=== PATIENT | female | born 1990 | race Caucasian/White ===

== ENCOUNTER 2018-05-04 16:52 | Inpatient (IN) ==
[2018-05-04] MEDS ORDERED: Metoclopramide 10 MG/2 ML VIAL IVP PRN (17:07)
[2018-05-04] MEDS ORDERED: Ondansetron 4 MG/2 ML VIAL IVP PRN (17:07)
[2018-05-04] MEDS ORDERED: *HR* Nalbuphine 10 MG/ML AMPUL IVP PRN (17:07)
[2018-05-04] MEDS ORDERED: Famotidine 20 MG/2 ML VIAL IVP PRN (17:07)
[2018-05-04] MEDS ORDERED: Naloxone 0.4 MG/ML INJ IVP PRN (17:07)
[2018-05-04] MEDS ORDERED: Ringers Solution, Lactated 1,000 ML IVC SCH (17:15)
[2018-05-04 17:33] LABS: Cord Venous Blood HCO3 20 mEq/L; Cord Venous Blood PCO2 83 mmHg (27-42); Cord Venous Blood PO2 < 17 mmHg (15-45)
[2018-05-04 17:40] LABS: Cord Arterial Blood HCO3 19 mEq/L; Cord Arterial Blood Oxygen Sat 12 %
[2018-05-04] MEDS ORDERED: Oxytocin 20 units/ LR 1000 mL 20 UNIT/1,000 ML BAG IVC ONE (17:55)
--- NOTE | 2018-05-04 18:03 | OB/GYN History & Physical ---
Date of Encounter: 05/04/18 Time of Encounter: 17:00 Assessment and Plan (1) 35 weeks gestation of Current visit: Yes Status: Acute (2) Active labor Current visit: Yes Status: Acute Admit to L&D for observation of labor Expectant management Pain management plan - NCB Labs - cbc and clot to hold Anticipate Dr. Vargas is OB solution maker and is available as needed Qualifiers: Fetus number: single or unspecified fetus Qualified Code(s): O60.10X0 - labor with delivery, unspecified trimester, not applicable or unspecified (3) Intact amniotic membranes during in third trimester Current visit: Yes Status: Acute AROM for delivery History of Present Illness Chief complaint: contractions HPI: Ms. Bernardo is a 27 year old female at approximately 35 weeks with an estimated date of of 06/08/18 dated by LMP. She presents from the [facility] with contractions every 2 minutes in active labor. Vaginal exam per transferring midwives as 5-6 cm. On arrival cervix is found to be complete. has been complicated by elevated LFTs. records per [facility]. Labs: O+ GBS unknown HIV unknown Hep B unknown RPR nonreactive GC/CL unknown Varicella unknown Rubella unknown Past Med Surg Social Fam HX - Past Medical History Medical history: asthma (as a child) Psychiatric history: no psych history - Past Surgical History Surgical History: no surgical history - Social History Smoking Status: Never smoker Smokeless Tobacco Status: No Alcohol use: none Drug use: none - Family History Mother Hx Family Cardiac Disorders: Yes (htn) Obstetrical History - Pregnancies : 2 Para: 1 Term: 0 : 1 Ab's: 0 Livin Medications and Allergies Vit Calc,Iron,Folic [ Vitamins] 1 each PO DAILY 12/16/15 [History] Allergy/AdvReac Type Severity Reaction Status Date / Time No Known Allergies Allergy Verified 12/16/15 17:57 Review of System OB All systems PM: reviewed and no additional remarkable complaints except as stated Exam - Constitutional Constitutional: well developed, well nourished, average body habitus, mild distress - HEENT HEENT: PERRL, Normocephaly, Mucus Membranes Moist - Neck Neck exam: full ROM - Lungs Respiratory exam: CTAB - Cardiovascular Cardiovascular exam: RRR, +S1, +S2 - Breasts Breast: bilateral: normal - Abdomen Abdomen: Present: bowel sounds normal, gravid, non tender - Extremities Extremities exam: normal capillary refill, normal inspection, radial pulses palpable and symmetrical - Vulva Vulva: bilateral: normal - Vagina Vagina: Present: normal moisture - Cervix Dilation: 10 Effacement: 100 Station: -1 - Uterus Uterus exam: Present: normal size, normal contour - Adnexa Adnexa: bilateral: normal - Anus/Rectum Anus/Rectum: Present: normal perianal skin Results Abnormal lab results Cord ABG pH 6.96 pH Units (7.13-7.42) L 05/04/18 17:36 Cord ABG pCO2 85 mmHg (30-60) H 05/04/18 17:36 Cord ABG Base Excess -16 mEq/L (3-11) L 05/04/18 17:36 Cord VBG pH 7.00 pH Units (7.19-7.49) L 05/04/18 17:29 Cord VBG pCO2 83 mmHg (27-42) H 05/04/18 17:29 Cord VBG Base Excess -14 mEq/L (1-9) L 05/04/18 17:29 All other labs normal. - VTE Reasons for not Prescribing Prophylaxis: Treatment not Indicated - Low risk for VTE
--- NOTE | 2018-05-04 18:37 | OB/GYN Procedure Note ---
Addendum entered and electronically signed by Gunjan Hamilton 05/08/18 22:45: Addendum entered and electronically signed by Shannan Rodriguez 05/05/18 08: 54: Original Note: Delivery - Delivery Date: 05/04/18 Provider: Blair Vargas Intrapartum events: none Delivery induction: none Delivery monitor: external FHT, external uterine Anesthesia: local Quantitated Blood Loss: 250 - (s) Infant A Infant Delivery Date: 05/04/18 Delivery Time: 17:15 Presentation: vertex Position: OA Route of delivery: vacuum extraction Gender: Male Viability: Viable Pounds: 4 Ounces: 6 at 1 minute: 7 at 5 mins: 8 Shoulder Dystocia: not encountered Specimens collected: cord blood, venous cord gases, arterial cord gases Placenta: spontaneous - Repair Episiotomy: none Laceration Description: Perineal - 3rd Degree - Complications Delivery complications: none - Disposition Mom disposition: stable in LDR Manor disposition: stable in LDR - Comments Comments: Patient presented complete with heart tones 80s and 90s. This did not respond to intrauterine resuscitation. Due to this she was taken to the operating room for double set up. Once in the operating room, external heart tones were noted to be in the 90s. Vacuum assisted delivery was performed without difficulty. The patient did undergo a third-degree laceration. This was repaired in anatomic fashion using 2-0 Vicryl using 3-0 Monocryl. Delivered spontaneously intact. Estimated blood loss was 250 mL. Rectal exam was performed at the end of the repair to confirm the absence of fourth degree.
[2018-05-04 18:38] LABS: Basophils % 0.4 %; Eosinophils % 0.1 %; Hematocrit 39.6 % (35.3-44.9); Hemoglobin 13.3 g/dL (11.5-15.4); Immature Granulocytes % 0.5 % (0-4); Lymphocytes % 27.3 %; Mean Corpuscular HGB Conc 33.6 g/dL (31.6-35.5); Mean Corpuscular Volume 95.4 fL (83.0-100.0); Mean Platelet Volume 11.4 fL (9.4-12.4); Monocytes # 0.7 K/mcL (0.0-1.3); Monocytes % 6.4 %; Neutrophils # 7.1 K/mcL (1.6-8.9); Platelet Count 272 K/mcL (140-400); Red Blood Count 4.15 M/mcL (3.82-4.97); Red Cell Distribution Width 13.2 % (11.5-14.5); Segmented Neutrophils % 65.3 %
--- NOTE | 2018-05-04 18:38 | Event Note ---
Date of Encounter: 05/04/18 Time of Encounter: 17:10 Upon admission to L&D room FHR found to be in the 80's. O2 applied and many position changes were attempted including left side, right side, and hands and knees. FHR not responding to interventions. Dr. Vargas called in for assist. Decision made to double set the OR for operative delivery and care transferred to Dr. Vargas.
[2018-05-04] MEDS ORDERED: Acetaminophen 325 MG TABLET PO PRN (21:15)
[2018-05-04] MEDS ORDERED: Measles/Mumps/Rubella Vacc 0.5 ML VIAL SQ PRN (21:15)
[2018-05-04] MEDS ORDERED: *HR* HYDROcodone/Acet 5/325 mg TABLET PO PRN (21:15)
[2018-05-04] MEDS ORDERED: Oxytocin 20 units/ LR 1000 mL 20 UNIT/1,000 ML BAG IVC SCH (21:15)
[2018-05-04] MEDS ORDERED: Ibuprofen 600 MG TABLET PO PRN (21:15)
[2018-05-05 08:56] VITALS: BP 117/86
[2018-05-05] MEDS ORDERED: Prenatal Vit/FA 1 EACH TABLET PO SCH (09:00)
--- NOTE | 2018-05-05 09:46 | Discharge Summary ---
Date of Encounter: 05/05/18 Time of Encounter: 09:38 - Discharge Diagnosis (1) Vaginal delivery Priority: Primary Status: Acute Comments: Status post vacuum assisted vaginal delivery day 1. 3rd degree laceration occurred and was repaired. Doing well and meeting milestones Lochia light Good appetite voiding and passing flatus Pain is currently controlled on norco Mood is appropriate Plans on and will need breast pump Discussed safe spacing and control She will follow up in 4 weeks with her shovel oiler Discharge home today - Discharge Medications Prescriptions: RX: HYDROcodone/Acet 5/325 mg [[place] 5-325 mg] 1 tab PO Q6HR PRN 5 Days #20 tablet PRN Reason: Moderate Pain (4-6) RX: Ibuprofen [Motrin] 600 mg PO Q6HR PRN #30 tablet PRN Reason: Cramping Breast Pump [BREAST PUMP] 1 each .ROUTE AD #1 each RX: Docusate [Colace] 100 mg PO BID #30 capsule RX: Ferrous Sulfate 325 mg PO DAILY #90 tablet Home Medications: RX: Vit Calc,Iron,Folic [ Vitamins] 1 each PO DAILY 12/16/15 [History] Breast Pump [BREAST PUMP] 1 each .ROUTE AD #1 each 05/05/18 [Rx] RX: Acetaminophen [Tylenol] 650 mg PO Q6HR PRN tablet 05/05/18 [Rx] RX: Docusate [Colace] 100 mg PO BID #30 capsule 05/05/18 [Rx] RX: Ferrous Sulfate 325 mg PO DAILY #90 tablet 05/05/18 [Rx] RX: HYDROcodone/Acet 5/325 mg [[place] 5-325 mg] 1 tab PO Q6HR PRN 5 Days #20 tablet 05/05/18 [Rx] RX: Ibuprofen [Motrin] 600 mg PO Q6HR PRN #30 tablet 05/05/18 [Rx] Allergies/Adverse Reactions: Allergy/AdvReac Type Severity Reaction Status Date / Time No Known Allergies Allergy Verified 12/16/15 17:57 Data Procedures and tests throughout hospitalization: Laboratory Tests 05/04/18 05/04/18 05/04/18 17:10 17:29 17:36 WBC 10.9 RBC 4.15 Hgb 13.3 Hct 39.6 MCV 95.4 MCH 32.0 MCHC 33.6 RDW 13.2 Plt Count 272 MPV 11.4 Immature Gran % 0.5 Seg Neutrophils % 65.3 Lymphocytes % 27.3 Monocytes % 6.4 Eosinophils % 0.1 Basophils % 0.4 Neutrophils # 7.1 Lymphocytes # 3.0 Monocytes # 0.7 Eosinophils # 0.0 Basophils # 0.0 Cord ABG pH 6.96 L Cord ABG pCO2 85 H Cord ABG pO2 18 Cord ABG HCO3 19 Cord ABG Total CO2 22 Cord ABG Base Excess -16 L Cord ABG O2 Sat 12 Cord VBG pH 7.00 L Cord VBG pCO2 83 H Cord VBG pO2 < 17 Cord VBG HCO3 20 Cord VBG Total CO2 23 Cord VBG Base Excess -14 L Cord VBG O2 Sat TNP Hep Bs Antigen 05/04/18 19:18 WBC RBC Hgb Hct MCV MCH MCHC RDW Plt Count MPV Immature Gran % Seg Neutrophils % Lymphocytes % Monocytes % Eosinophils % Basophils % Neutrophils # Lymphocytes # Monocytes # Eosinophils # Basophils # Cord ABG pH Cord ABG pCO2 Cord ABG pO2 Cord ABG HCO3 Cord ABG Total CO2 Cord ABG Base Excess Cord ABG O2 Sat Cord VBG pH Cord VBG pCO2 Cord VBG pO2 Cord VBG HCO3 Cord VBG Total CO2 Cord VBG Base Excess Cord VBG O2 Sat Hep Bs Antigen Nonreactive Labs on day of discharge: Labs from last 24 hours 05/04/18 05/04/18 05/04/18 19:18 17:36 17:29 WBC RBC Hgb Hct MCV MCH MCHC RDW Plt Count MPV Immature Gran % Seg Neutrophils % Lymphocytes % Monocytes % Eosinophils % Basophils % Neutrophils # Lymphocytes # Monocytes # Eosinophils # Basophils # Cord ABG pH 6.96 L Cord ABG pCO2 85 H Cord ABG pO2 18 Cord ABG HCO3 19 Cord ABG Total CO2 22 Cord ABG Base Excess -16 L Cord ABG O2 Sat 12 Cord VBG pH 7.00 L Cord VBG pCO2 83 H Cord VBG pO2 < 17 Cord VBG HCO3 20 Cord VBG Total CO2 23 Cord VBG Base Excess -14 L Cord VBG O2 Sat TNP Hep Bs Antigen Nonreactive 05/04/18 17:10 WBC 10.9 RBC 4.15 Hgb 13.3 Hct 39.6 MCV 95.4 MCH 32.0 MCHC 33.6 RDW 13.2 Plt Count 272 MPV 11.4 Immature Gran % 0.5 Seg Neutrophils % 65.3 Lymphocytes % 27.3 Monocytes % 6.4 Eosinophils % 0.1 Basophils % 0.4 Neutrophils # 7.1 Lymphocytes # 3.0 Monocytes # 0.7 Eosinophils # 0.0 Basophils # 0.0 Cord ABG pH Cord ABG pCO2 Cord ABG pO2 Cord ABG HCO3 Cord ABG Total CO2 Cord ABG Base Excess Cord ABG O2 Sat Cord VBG pH Cord VBG pCO2 Cord VBG pO2 Cord VBG HCO3 Cord VBG Total CO2 Cord VBG Base Excess Cord VBG O2 Sat Hep Bs Antigen Date of admission: 05/04/18 16:52 Primary care physician: Gunjan Hamilton Consults: 05/04/18 21:15 Consult to Fire Control Mechanic [CONS] Routine Comment: Vaginal delivery, consult needed Discharging clinician: Shannan Rodriguez Anticipated date of discharge: 05/05/18 - Patient Status Disposition: Home, Self-Care Condition: Good Functional capacity at discharge: independent ambulation Overall status at discharge: patient is progressing back to baseline - Discharge Instructions Follow Up With: Gunjan Hamilton [Advanced Practice Nurse] - Additional Instructions: Follow up with your shovel oiler in 4 weeks. - Diet and Activity Activity: increase activity as tolerated Diet: advance to your usual diet Hospital Course Reason for admission: active labor Delivery: vacuum extraction Episiotomy: none Laceration: 3rd degree Other procedures: none complications: none Discharge diagnosis: delivery baby: male Hospital course: - Delivery Date: 05/04/18 Provider: Blair Vargas Intrapartum events: none Delivery induction: none Delivery monitor: external FHT, external uterine Anesthesia: local Quantitated Blood Loss: 250 - Infant (s) Infant A Infant Delivery Date: 05/04/18 Infant Delivery Time: 17:15 Presentation: vertex Position: OA Route of delivery: vacuum extraction Gender: Male Viability: Viable Pounds: 4 Ounces: 6 at 1 minute: 7 at 5 mins: 8 Shoulder Dystocia: not encountered Specimens collected: cord blood, venous cord gases, arterial cord gases Placenta: spontaneous Time Attestation: Total time spent providing and/or coordinating discharge services: Time Spent: Greater than 30 minutes Exam - Constitutional Vitals: Temp Pulse Resp BP Pulse Ox 97.6 F 80 16 117/86 96 05/05/18 08:55 05/05/18 08:55 05/05/18 08:55 05/05/18 08:55 05/05/18 08:55 General appearance IM: cooperative, A&O X 3, answers questions appropriately - Respiratory Respiratory exam: Present: CTAB. Absent: rales, rhonchi, wheezes - Cardiovascular Cardiovascular exam IM: Present: RRR, +S1, +S2 - GI/Abdominal GI/Abdominal exam IM: normal bowel sounds, soft - External exam: normal external exam Uterine Tone: Firm Uterus Position: 3 Fingers Below Umbilicus - Extremities Exam Extremities exam IM: Present: normal capillary refill, normal inspection. Absent: calf tenderness, pedal edema - Neurological Exam Neurological exam: CN II-XII intact, normal gait - Psychiatric Additional comments: Mood is appropriate - Attending Attestation I examined this patient and my medical decision-making was reviewed with the Resident Physician. I agree with the documented findings, disposition and treatment plan as described. Carlos Eduardo Mitchell CNM
== END 2018-05-05 13:15 | disposition home or self-care (01) | DRG 768 ==
LOC: 1NENULAB 16:52 → 1NENUOBS 21:44
PROVIDERS: ADMIT Advanced Practice Midwife; ATTEND Advanced Practice Midwife

== ENCOUNTER → 2021-08-18 20:25 | Observation (INO) ==
[2021-08-18 18:33] LABS: Bacteria,Urine Few per hpf (None-Few); Bilirubin,Urine Negative (Negative); Blood,Urine Negative (Negative); Clarity,Urine Clear (Clear); Color,Urine Colorless (Yellow); Glucose,Urine (UA) Normal (Normal); Ketones,Urine 100 mg/dL (Negative); Leukocyte Esterase,Urine Small (Negative); Nitrite,Urine Negative (Negative); PH,Urine 5.5 pH Units (5.0-8.0); Protein,Urine Negative (Neg-Trace); RBC,Urine 0-3 per hpf (0-3); Specific Gravity,Urine 1.009 (1.010-1.025); Squamous Epithelial Cell,Urine Few per hpf (None-Few); Urobilinogen,Urine Normal (Normal); WBC,Urine 0-3 per hpf (0-3)
== END | disposition home or self-care (01) ==
LOC: 1NENULAB
PROVIDERS: ADMIT Registered Nurse; ATTEND Registered Nurse

== ENCOUNTER → 2021-09-05 01:48 | Observation (INO) | END | disposition home or self-care (01) | LOC: 1NENULAB | PROVIDERS: ADMIT Registered Nurse; ATTEND Registered Nurse ==

== ENCOUNTER 2021-09-07 05:54 | Inpatient (IN) ==
[~2021-09-07 05:54] MED LIST: *HR* Nalbuphine 10 MG/ML AMPUL IV PRN; Azithromycin 500 MG in 0.9 % Sodium Chloride 250 ML IVPB PRN; EPHEDrine 50 MG/ML VIAL IVP PRN; Epidural Premix (fent/bupiv) 0 ML EP ONE; Epidural Premix (fent/bupiv) 110 ML EP SCH; Famotidine 20 MG/2 ML VIAL IVP PRN; Lidocaine 1% 20 ML MDV ONE; Metoclopramide 10 MG/2 ML VIAL IVP PRN; Naloxone 0.4 MG/ML INJ IVP PRN
[2021-09-07] MEDS ORDERED: Ringers Solution, Lactated 1,000 ML IVC SCH (06:00)
[2021-09-07] MEDS ORDERED: Ondansetron 4 MG/2 ML VIAL IVP PRN (06:00)
[2021-09-07 06:33] LABS: Basophils % 0.4 %; Eosinophils % 0.6 %; Hematocrit 37.8 % (35.3-44.9); Hemoglobin 12.9 g/dL (11.5-15.4); Immature Granulocytes % 0.7 % (0-4); Lymphocytes # 1.6 K/mcL (0.6-4.6); Lymphocytes % 23.6 %; Mean Corpuscular HGB Conc 34.1 g/dL (31.6-35.5); Mean Corpuscular Hemoglobin 33.8 pg (28.0-33.3); Mean Platelet Volume 10.2 fL (9.4-12.4); Monocytes # 0.5 K/mcL (0.0-1.3); Monocytes % 6.6 %; Neutrophils # 4.7 K/mcL (1.6-8.9); Platelet Count 230 K/mcL (140-400); Red Blood Count 3.82 M/mcL (3.82-4.97); Red Cell Distribution Width 13.6 % (11.5-14.5); Segmented Neutrophils % 68.1 %; White Blood Count 6.9 K/mcL (4.3-11.1)
[2021-09-07] MEDS ORDERED: Lanolin 7 G OINT...G. TP PRN (09:40)
[2021-09-07] MEDS ORDERED: Oxytocin 20 units/ LR 1000 mL 20 UNIT/1,000 ML BAG IVC SCH (09:40)
[2021-09-07] MEDS ORDERED: *HR* HYDROcodone/Acet 5/325 mg TABLET PO PRN (09:40)
[2021-09-07] MEDS ORDERED: Benzocaine/Menthol 56 GM AEROSOL SPRAY TP PRN (09:40)
[2021-09-07] MEDS ORDERED: Ondansetron ODT 4 MG TAB.RAPDIS SL PRN (09:40)
[2021-09-07] MEDS: Prenatal Vit/FA 1 EACH TABLET PO SCH (10:45)
[2021-09-07] MEDS: polyethylene glycoL 3350 17 GM POWD.PACK PO SCH (10:45)
[2021-09-07] MEDS: Ibuprofen 600 MG TABLET PO SCH ×2 (10:46→20:39)
[2021-09-07] MEDS: Acetaminophen 325 MG TABLET PO SCH ×2 (10:46→20:39)
[2021-09-07 15:14] LABS: Amphetamine Screen,Urine Negative ng/mL (Cutoff=1000); Barbiturate Screen,Urine Negative ng/mL (Cutoff=200); Benzodiazepines Screen,Urine Negative ng/mL (Cutoff=200); Cannabinoid Screen,Urine Negative ng/mL (Cutoff = 50); Cocaine Screen,Urine Negative ng/mL (Cutoff= 300); Opiate Screen,Urine Negative ng/mL (Cutoff=300); Phencyclidine Screen,Urine Negative ng/mL (Cutoff=25)
[2021-09-08] MEDS: Acetaminophen 325 MG TABLET PO SCH (04:01)
[2021-09-08] MEDS: Ibuprofen 600 MG TABLET PO SCH ×2 (04:01→10:43)
[2021-09-08 04:40] LABS: Basophils % 0.2 %; Eosinophils # 0.1 K/mcL (0.0-0.6); Eosinophils % 0.6 %; Hematocrit 34.8 % (35.3-44.9); Hemoglobin 12.1 g/dL (11.5-15.4); Immature Granulocytes % 0.5 % (0-4); Lymphocytes # 1.8 K/mcL (0.6-4.6); Lymphocytes % 21.6 %; Mean Corpuscular HGB Conc 34.8 g/dL (31.6-35.5); Mean Corpuscular Hemoglobin 34.1 pg (28.0-33.3); Mean Platelet Volume 9.8 fL (9.4-12.4); Monocytes # 0.6 K/mcL (0.0-1.3); Monocytes % 6.7 %; Neutrophils # 5.9 K/mcL (1.6-8.9); Platelet Count 216 K/mcL (140-400); Red Blood Count 3.55 M/mcL (3.82-4.97); Red Cell Distribution Width 13.5 % (11.5-14.5); Segmented Neutrophils % 70.4 %; White Blood Count 8.3 K/mcL (4.3-11.1)
[2021-09-08 07:38] VITALS: BP 106/69; TEMP 97.7; O2SAT 96
[2021-09-08] MEDS: Prenatal Vit/FA 1 EACH TABLET PO SCH (10:43)
[2021-09-08] MEDS: polyethylene glycoL 3350 17 GM POWD.PACK PO SCH (10:43)
[2021-09-08 11:09] VITALS: PULSE 80
== END 2021-09-08 12:30 | disposition home or self-care (01) | DRG 768 ==
LOC: 1NENULAB → 1NENUOBS 09:34
PROVIDERS: ADMIT Advanced Practice Midwife; ATTEND Advanced Practice Midwife